=== PATIENT | female | born 1970 | race Caucasian/White ===

== ENCOUNTER 2024-09-03 10:37 | Emergency (ER) | payer SELFPAY ==
[~2024-09-03] VITALS: Wt 77.1 kg
[2024-09-03 11:37] LABS: BASO # 0.1 10*3/uL (0.0-0.1); BASO % 0.6 % (0.0-1.0); EOS # 0.2 10*3/uL (0.0-0.4); EOS % 1.9 % (1.0-4.0); HEMATOCRIT 46.3 % (37.0-47.0); MEAN CELL VOLUME 86.9 fl (81.0-99.0); MEAN CORPUSCULAR HGB 28.3 pg (27.0-31.0); MEAN CORPUSCULAR HGB CONC 32.6 g/dl (33.0-37.0); MEAN PLATELET VOLUME 9.6 fl (9.6-12.3); MONO # 0.6 10*3/uL (0.1-1.0); MONO % 6.1 % (3.0-9.0); NEUT # 5.7 10*3/uL (2.3-7.9); NEUT % 61.2 % (47.0-73.0); PLATELET COUNT AUTOMATED 276 10*3/uL (130-400); RED BLOOD COUNT 5.33 10*6/uL (4.10-5.10); RED CELL DISTRI WIDTH 14.5 % (0-14.5); WHITE BLOOD COUNT 9.3 10*3/uL (4.8-10.8)
[2024-09-03 11:56] LABS: BUN 11 mg/dl (9-23); CHLORIDE 107 mmol/L (98-107)
[2024-09-03] MEDS ORDERED: SEPTDS PO (15:09)
[2024-09-03] MEDS ORDERED: Sulfamethoxazole/Trimethopri 1 TAB TAB PO ONE (15:10)
== END 2024-09-03 15:13 | disposition home or self-care (01) ==
LOC: ED 10:37
PROVIDERS: Nurse Practitioner Family
DX: S20.101A Unspecified superficial injuries of breast, right breast, initial encounter (principal); Z98.890 Other specified postprocedural states; Z98.82 Breast implant status; X58.XXXA Exposure to other specified factors, initial encounter; Y93.89 Activity, other specified; Y92.89 Other specified places as the place of occurrence of the external cause; Y99.8 Other external cause status